=== PATIENT | male | born 1960 | race Caucasian/White ===

== ENCOUNTER 2017-05-13 10:18 | Emergency (ER) | payer OTHER ==
[~2017-05-13] VITALS: Ht 170.2 cm; Wt 75.0 kg
[~2017-05-13 10:18] MED LIST: ALPRAZOLAM PO; BLOOD PRESSURE MED?; BP MED; CRESTOR PO; IBUPROFEN600 MG PO; NO MEDICATIONS; PAXIL PO; VOLTAREN75 MG PO
[2017-05-13 11:19] LABS: BASOPHIL% 0.5 % (0-2.5); EOSINOPHIL% 0.4 % (0.0-7.0); HEMATOCRIT 47.7 % (38.0-50.0); HEMOGLOBIN 16.5 gm/dL (13.0-16.0); LYMPHOCYTE# 1.1 X10e3 (1.0-3.5); LYMPHOCYTE% 10.6 % (17.0-45.0); MEAN CELL VOLUME 101.7 FL (83-96); MEAN CORPUSCULAR HEMOGLOBIN 35.1 PG (28-34); MEAN CORPUSCULAR HGB CONC 34.5 g/dL (30-36); MEAN PLATELET VOLUME 7.8 FL (6.5-11.5); MONOCYTE# 1.1 X10e3 (0-1.0); MONOCYTE% 9.8 % (3.0-12.0); NEUTROPHIL# 8.5 X10e3 (1.5-7.1); NEUTROPHIL% 78.7 % (40-75); PLATELET COUNT 311 X10e3 (140-420); RED BLOOD COUNT 4.69 X10e (3.90-5.60); RED CELL DISTRIBUTION WIDTH 12.6 % (11.0-15.5); WHITE BLOOD COUNT 10.8 X10e3 (4.0-10.5)
[2017-05-13 11:20] LABS: DIFF IND NO
[2017-05-13 11:56] LABS: ALBUMIN SERUM 3.9 g/dL (3.5-5.0); BILIRUBIN, DIRECT 0.1 mg/dL (0.0-0.2); BILIRUBIN,INDIRECT 0.8 mg/dL (0.0-0.9); BILIRUBIN,TOTAL 0.9 mg/dL (0.2-2.0); BUN/CREATININE RATIO 14.28; CALCIUM SERUM 9.1 mg/dL (8.4-10.2); CREATININE SERUM 0.7 mg/dL (0.6-1.4); GLOM FILT RATE Estimated 105.5 mL/min (>60); POTASSIUM 3.7 mmol/L (3.5-5.1); PROTEIN TOTAL SERUM 8.1 g/dL (6.0-8.3)
[2017-05-13 12:20] LABS: URINE SOURCE CLEAN CATCH
[2017-05-13 12:28] LABS: URINE APPEARANCE CLOUDY; URINE BLOOD NEG (NEG); URINE COLOR DK YELLOW; URINE GLUCOSE NEG (NEG); URINE KETONE 2+ (NEG); URINE LEUKOCYTE ESTERASE 2+ (NEG); URINE NITRATE NEG (NEG); URINE PH 6.5 (5-8); URINE PROTEIN 1+ (NEG); URINE SPECIFIC GRAVITY 1.024 (1.003-1.035)
[2017-05-13 12:30] LABS: CULTURE INDICATED? YES; URINE BACTERIA AUWI NEG (NEGATIVE); URINE SQUAMOUS EPITHELIAL CELL MOD /[HPF]; UWBCS1 AUWI 50-100 (0-5)
[2017-05-13 12:45] LABS: URINE BILIRUBIN NEG (NEG)
[2017-05-13 12:46] LABS: URINE GRANULAR CAST 0-2 /[HPF]; URINE MUCUS PRESENT
[2017-05-13 12:48] LABS: URINE TRICHOMONAS PRESENT
[2017-06-07] MEDS ORDERED: FLEXERIL10 MG PO (11:28)
[2017-06-07] MEDS ORDERED: NORVASC PO (11:28)
== END 2017-05-13 13:55 | disposition home or self-care (01) ==
LOC: CED 10:18
PROVIDERS: Emergency Medicine
DX: A59.03 Trichomonal cystitis and urethritis (principal); I10 Essential (primary) hypertension; F17.200 Nicotine dependence, unspecified, uncomplicated
CPT/HCPCS: 36415; 80048; 80076; 81003; 82150; 83690; 85025; 87086; 96361; 96372; 96374; 99284; J0696; J1885

== ENCOUNTER 2017-05-26 11:37 | Emergency (ER) | payer OTHER ==
[2017-05-26] MEDS ORDERED: B/P MED (11:45)
[2017-06-07] MEDS ORDERED: FLEXERIL10 MG PO (11:28)
[2017-06-07] MEDS ORDERED: NORVASC PO (11:28)
== END 2017-05-26 12:30 | disposition home or self-care (01) ==
LOC: SED 11:37
DX: S39.011A Strain of muscle, fascia and tendon of abdomen, initial encounter (principal); I10 Essential (primary) hypertension; F17.200 Nicotine dependence, unspecified, uncomplicated; X50.0XXA Overexertion from strenuous movement or load, initial encounter; Y92.69 Other specified industrial and construction area as the place of occurrence of the external cause; Y93.89 Activity, other specified; Y99.0 Civilian activity done for income or pay
CPT/HCPCS: 99283

== ENCOUNTER → 2017-06-01 | Outpatient (CLI) | payer OTHER ==
[~2017-06-01] MED LIST changes: +B/P MED; +FLEXERIL10 MG PO; +NORVASC PO
--- NOTE | ~2017-06-01 | CT3 ---
[facility] A Service of [facility] & [facility] RADIOLOGY TEXT RESULTS PATIENT: DORA HERRERA LOCATION: [facility] : 62 UNIT #: [id number] AGE: [address]: MALENA GONSALEZ SEX: M ORDER DR: [id number] [facility] [address] [place], [place] [address] [id number] MR#: [id number] Acc #: [id number] NAME: DORA HERRERA : 1960 SEX: M STUDY DATE/TIME: 06/01/2017 7:35 UNIT: [facility] ROOM: STUDY DESCRIPTION: CT Abd and Pelv WWo Cont Attending Physician: Samy Simmons Referring Physician: Samy Simmons Ordering Physician: Samy Simmons Primary Care Physician: Dejah Armenta M.D. MEDICAL IMAGING REPORT This report is preliminary unless electronic signature is present EXAM CT abdomen and pelvis without and with contrast INDICATION Right lower quadrant abdominal pain for the past [address] of the abdomen and pelvis. Postcontrast CT of the abdomen and pelvis. This CT examination was performed with one or more of the following radiation dose reduction techniques: automatic exposure control, adjustment of mA and/or kV according to patient size, and iterative reconstruction. COMPARISON None. FINDINGS ABDOMEN WITHOUT CONTRAST: The included lung bases are clear. No radiodense gallstones. 3 mm nonobstructing calculus in the upper pole of the left kidney. No radiodense ureteral calculus. PELVIS WITHOUT CONTRAST. No radiodense bladder calculus. ABDOMEN WITH CONTRAST: Liver is borderline enlarged at 19.7 cm. The spleen is unremarkable. 2.2 cm indeterminate lesion at the upper pole of the left kidney. It has a precontrast HU value of 21.6 and postcontrast HU value of 38.9. Suspicious for a mildly enhancing left renal mass. Right kidney is unremarkable. Adrenal glands, pancreas and gallbladder are unremarkable. Bowel loops are nondilated. Suspicion for a rectal mass, with shouldering. The exact extent of this abnormality is difficult to determine on this study, but it STS. [facility] A Service of [facility] & [facility] RADIOLOGY TEXT RESULTS PATIENT: DORA HERRERA LOCATION: [facility] : 62 UNIT #: [id number] AGE: [address]: MALENA GONSALEZ SEX: M ORDER DR: appears to measure approximately 6.7 cm in length. There is some adjacent abnormal soft tissue in the perirectal fat along the superior margin of the mass that measures up to 3.3 cm. No other appreciable pelvic adenopathy. Not mentioned above, there is a 9 mm indeterminate low-attenuation lesion in segment 5 of the liver. There is a 6 mm indeterminate lesion in segment 6 of the liver. No aggressive appearing bone lesion. IMPRESSION 1. Suspicion for a rectal mass, not well characterized on this study, but measuring approximately 6.7 cm in length with suspicion for either local remedios metastasis or local extension of tumor as detailed above. Recommend direct visualization. If further characterization is desired clinically, pelvic MRI may be helpful. 2. A 2.2 cm indeterminate lesion in the upper pole of the left kidney as detailed above as well as 2 subcentimeter indeterminate lesions in the right hepatic lobe. These may represent small benign cysts but given the rectal findings small hepatic metastases are not excluded. Consider evaluation of the left renal and hepatic findings with a abdominal MRI. Dictated by... Deshawn Ramirez M.D. THIS IS AN ELECTRONICALLY VERIFIED REPORT Deshawn Ramirez M.D. at 06/02/2017 7:02 AM PASTORA/bibiana TD: 06/01/2017 14:21 JOB #: [id number] MEDICAL IMAGING REPORT Page 1 of 1 COPY
[2017-06-01 06:56] LABS: POC - CREATININE 0.82 mg/dL (0.64-1.27); POC - GFR >60.0 mL/min (>60)
== END | disposition home or self-care (01) ==
LOC: CCAT 05-31 15:00
PROVIDERS: Nurse Practitioner Family
DX: R10.823 Right lower quadrant rebound abdominal tenderness (principal); R19.01 Right upper quadrant abdominal swelling, mass and lump; N28.89 Other specified disorders of kidney and ureter
CPT/HCPCS: 74178; 82565; Q9967